=== PATIENT | female | born 1950 | race Caucasian/White ===

== ENCOUNTER 2017-05-05 11:16 | Outpatient (CLI) | payer MEDICARE ==
[2017-05-05 12:07] LABS: Anion Gap 14 mmol/L (10-20); BUN (Urea Nitrogen) 28 mg/dL (9.8-20.1); Calc. Creatinine Clearance 0 mL/min (70-130); Calcium 9.7 mg/dL (7.8-10.44); Carbon Dioxide 26 mmol/L (23-31); Chloride 105 mmol/L (98-107); Estimated GFR-MDRD 65; Glucose 138 mg/dL (80-115); Potassium 3.9 mmol/L (3.5-5.1); Sodium 141 mmol/L (136-145)
[2017-05-05 12:20] LABS: Hemoglobin A1c 6.2 % (4.0-6.0)
== END 2017-05-05 11:17 | disposition home or self-care (01) ==
LOC: BURLAB 11:16
PROVIDERS: ATTEND Family Medicine
DX: E11.9 Type 2 diabetes mellitus without complications (principal)
CPT/HCPCS: 36415; 80048; 83036